=== PATIENT | female | born 1995 | race Two or more races ===

== ENCOUNTER 2023-05-07 11:18 | Emergency (ER) | payer OTHER ==
[~2023-05-07] VITALS: Ht 167.6 cm; Wt 55.8 kg
== END 2023-05-07 15:56 | disposition home or self-care (01) ==
LOC: ER 11:18
DX: R60.0 Localized edema (principal); T78.40XA Allergy, unspecified, initial encounter

== ENCOUNTER 2023-06-21 10:32 | Emergency (ER) | payer OTHER ==
[~2023-06-21] VITALS: Ht 167.6 cm; Wt 56.2 kg
== END 2023-06-21 21:59 | disposition home or self-care (01) ==
LOC: ER 10:32
PROVIDERS: Emergency Medicine
DX: R10.9 Unspecified abdominal pain (principal)
CPT/HCPCS: 36415; 74177; Q9965